=== PATIENT | male | born 1965 | race American Indian/Alaskan Native ===

== ENCOUNTER 2021-02-03 16:36 | Emergency (ER) | payer MEDICAID ==
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
--- NOTE | 2021-02-03 17:21 | Cat Scan Report ---
CT head/brain wo con INDICATION: Headaches.. TECHNIQUE: Routine CT head. All CT scans at this location are performed using CT dose reduction for A VINI by means of automated exposure control. COMPARISON: None. FINDINGS: Intracranial: Olivarez-white matter differentiation is maintained. No intracranial hemorrhage. No extra a xial collection. No hydrocephalus. No herniation. Sinuses: Paranasal sinuses and mastoid air cells are essentially clear. Orbits: Globes are intact. Osseous structures: Age-indeterminate but chronic appearing nasal bone fracture. IMPRESSION: 1. No acute intracranial abnormality. Signer Name: Stef Bolden MD Signed: 02/03/2021 5:16 PM Workstation Name: [id number]
[2021-02-03] MEDS ORDERED: MORPHINE 4 MG/1 ML INJ IV ONE (17:36)
[2021-02-03] MEDS ORDERED: ASPIRIN 81 MG TAB CHEW PO ONE (17:42)
[2021-02-03 17:46] LABS: Basophils # (Auto) 0.1 K/mm3 (0.0-0.1); Basophils % (Auto) 0.6 % (0.0-1.8); Eosinophils % (Auto) 0.3 % (0.0-4.3); Hematocrit 42.4 % (35.5-45.6); Hemoglobin 14.2 gm/dl (11.8-15.2); Lymphocytes # (Auto) 3.5 K/mm3 (1.2-5.4); Lymphocytes % (Auto) 32.6 % (13.4-35.0); Mean Corpuscular HGB Conc 34 % (32-34); Mean Corpuscular Volume 94 fl (84-94); Monocytes # (Auto) 0.7 K/mm3 (0.0-0.8); Monocytes % (Auto) 6.4 % (0.0-7.3); Platelet Count 295 K/mm3 (140-440); Red Blood Count 4.51 M/mm3 (3.65-5.03); Red Cell Distribution Width 14.2 % (13.2-15.2)
--- NOTE | 2021-02-03 17:51 | XRay Report ---
XR chest 1V ap INDICATION / CLINICAL INFORMATION: CP. COMPARISON: None available. FINDINGS: SUPPORT DEVICES: None. HEART /PULMONARY VASCULATURE: No significant abnormality. LUNGS / PLEURA: No significant pulmonary or pleural abnormality. No pneumothorax. ADDITIONAL FINDINGS: No significant additional findings. IMPRESSION: 1. No acute findings. Signer Name: Albert Bedoya MD Signed: 02/03/2021 5:47 PM Workstation Name: [id number]
[2021-02-03 17:59] LABS: Creatine Kinase MB 1.5 ng/mL (0.0-4.0); INR 0.91 (0.87-1.13)
[2021-02-03 18:00] LABS: Alanine Aminotransferase 14 units/L (7-56); Albumin 4.3 g/dL (3.9-5); BUN/Creatinine Ratio 11; Blood Urea Nitrogen 14 mg/dL (9-20); Hemolysis Index 8
[2021-02-03 18:01] LABS: Partial Thromboplastin Time 28.7 Sec. (24.2-36.6); Thrombin Time 16.1 Sec. (15.1-19.6)
[2021-02-03 18:27] LABS: Bilirubin,Urine NEG (Negative); Blood,Urine NEG (Negative); Color,Urine Yellow (Yellow); Protein,Urine <15 mg/dL mg/dL (Negative)
[2021-02-03] MEDS ORDERED: ALBUTEROL 2.5 MG/3 ML NEBU IH ONE (18:33)
[2021-02-03 18:35] LABS: Amphetamine Screen,Urine Negative; Benzodiazepines Screen,Urine Negative; Cocaine Screen,Urine Negative; Methadone Screen,Urine Negative; Opiate Screen,Urine Negative
[2021-02-03 18:46] LABS: Cannabinoid Screen,Urine Positive
[2021-02-03 21:50] VITALS: BP 150/89
--- NOTE | 2021-02-05 11:32 | Electrocardiograph Report ---
[facility] Test Date: 2021-02-03 Test Time: 17:45:33 Pat Name: NURIA MURILLO Department: Room: Gender: M [employer] Supervisor: CLAIR : 1965 Requested By: ROSA MARIA HANSON Order Number: [id number] Reading MD: Linda Torres Measurements Intervals [place] Rate: 57 P: 46 [place]: 181 QRS: 69 QRSD: 75 T: 51 QT: 423 QTc: 413 Interpretive Statements Sinus bradycardia No previous ECG available for comparison Electronically Signed On 02-05-2021 11:32:10 EDT by Linda Torres
== END 2021-02-03 22:01 | disposition left against medical advice (07) ==
LOC: ED 16:36
DX: I10 Essential (primary) hypertension (principal); R29.90 Unspecified symptoms and signs involving the nervous system; R07.89 Other chest pain
CPT/HCPCS: 36415; 70450; 71045; 80053; 80307; 81001; 82550; 82553; 84443; 84484; 85025; 85610; 85670; 85730; 93005; 96374; 99284; J2270; 80320; G0480